=== PATIENT | female | born 1990 | race Caucasian/White ===

== ENCOUNTER 2016-09-14 15:09 | Emergency (ER) | payer MEDICAID ==
[2016-09-14 16:26] LABS: ANION GAP 9.9 (7-16); BLOOD UREA NITROGEN 13 mg/dL (7-17); CARBON DIOXIDE 26.1 mmol/L (22-30); CREATININE 0.7 mg/dL (0.52-1.04); EST GLOMERULAR FILTRATION RATE > 60 ml/min; GLUCOSE,RANDOM 179 mg/dL (70-110)
--- NOTE | 2016-09-14 17:29 | Emergency Department Record ---
History of Present Illness - General Chief complaint: Hypogylcemia Stated complaint: LOW BLOOD SUGAR Time Seen by Provider: 09/14/16 15:55 Source: Patient Mode of Arrival: Ambulatory Limitations: No limitations - History of Present Illness Initial comments: pt recently had her diabetic meds changed and now has fluctuating bs from 190 to 70. she was told to come in. she states she usually runs in the 200s and when she dropped to 70 she became nauseated. she was recently started on glipizide and tanzeum which she received last friday. Onset/Timin -: Week(s) Location: Generalized Consistency: Intermittent Improves with: None Worsens with: None Associated Symptoms: Nausea/vomiting - [place] Coma Scale Eye Response: (4) Open spontaneously Motor Response: (6) Obeys commands Verbal Response: (5) Oriented Radha Total: 15 - Related Data Home Medications Medication Instructions Recorded Confirmed Last Taken Aspirin 81 mg PO QD tab.chew 12/07/15 09/14/16 09/14/16 Insulin Aspart [Novolog Flexpen] 15 unit SQ TID pen.injctr 12/07/15 09/14/16 Prasugrel HCl [Effient] 10 mg PO QD tab 12/07/15 09/14/16 Unknown Allergies Allergy/AdvReac Type Severity Reaction Status Date / Time amoxicillin Allergy Severe HIVES Verified 09/14/16 15:32 Travel Screening - Travel/Exposure Within Last 30 Days Have you traveled within the last 30 days?: No Review of Systems Reviewed: No additional complaints except as noted below Constitutional: Reports: As per HPI. Denies: Chills, Fever, Malaise, Night sweats, Weakness, Weight change Eyes: Reports: As per HPI. Denies: Eye discharge, Eye pain, Photophobia, Vision change ENT: Reports: As per HPI. Denies: Congestion, Dental pain, Ear pain, Epistaxis , Hearing loss, Throat pain Respiratory: Reports: As per HPI. Denies: Cough, Dyspnea, Hemoptysis, Stridor, Wheezes Cardiovascular: Reports: As per HPI. Denies: Arrhythmia, Chest pain, Dyspnea on exertion, Edema, Murmurs, Orthopnea, Palpitations, Paroxysmal nocturnal dyspnea, Rheumatic Fever, Syncope Endocrine: Reports: As per HPI. Denies: Fatigue, Heat or cold intolerance, Polydipsia, Polyuria Gastrointestinal: Reports: As per HPI. Denies: Abdominal pain, Constipation, Diarrhea, Hematemesis, Hematochezia, Melena, Nausea, Vomiting Genitourinary: Reports: As per HPI. Denies: Abnormal menses, Discharge, Dyspareunia, Dysuria, Frequency, Hematuria, Incontinence, Retention, Urgency Musculoskeletal: Reports: As per HPI. Denies: Arthralgia, Back pain, Gout, Joint swelling, Myalgia, Neck pain Skin: Reports: As per HPI. Denies: Bruising, Change in color, Change in hair/ nails, Lesions, Pruritus, Rash Neurological: Reports: As per HPI. Denies: Abnormal gait, Confusion, Headache, Numbness, Paresthesias, Seizure, Tingling, Tremors, Vertigo, Weakness Psychiatric: Reports: As per HPI. Denies: Anxiety, Auditory hallucinations, Depression, Homicidal thoughts, Suicidal thoughts, Visual hallucinations Hematological/Lymphatic: Reports: As per HPI. Denies: Anemia, Blood Clots, Easy bleeding, Easy bruising, Swollen glands Past Medical History - SOCIAL HISTORY Smoking Status: Never smoker Alcohol Use: None Drug Use: None - RESPIRATORY Hx Respiratory Disorders: Yes Hx Asthma: Yes Hx Sleep Apnea: Yes Hx of CPAP: No - CARDIOVASCULAR Hx Cardio Disorders: Yes Hx Heart Attack: Yes Hx Hypertension: Yes Comment:: high cholesterol - NEURO Hx Neuro Disorders: No - GI Hx GI Disorders: No - Hx Genitourinary Disorders: No - ENDOCRINE Hx Endocrine Disorders: Yes Hx Diabetes: Yes - MUSCULOSKELETAL Hx Musculoskeletal Disorders: No - PSYCH Hx Psych Problems: No - HEMATOLOGY/ONCOLOGY Hx Hematology/Oncology Disorders: No Family Medical History Any Significant Family History?: Yes Hx Cancer: Grandparents Hx Diabetes: Father, Mother, Grandparents Physical Exam - General General Appearance: Alert, Oriented x3, Cooperative, No acute distress - Head Head exam: Normal inspection - Eye Eye exam: Normal appearance, PERRL, EOMI Pupils: Normal accommodation - ENT ENT exam: Normal exam, Mucous membranes moist, Normal external ear exam, Normal orophraynx Ear exam: Normal external inspection. negative: External canal tenderness Nasal Exam: Normal inspection. negative: Discharge, Sinus tenderness Mouth exam: Normal external inspection, Tongue normal Teeth exam: Normal inspection. negative: Dental caries Throat exam: Normal inspection. negative: Tonsillar erythema, Tonsillar exudate - Neck Neck exam: Normal inspection, Full ROM. negative: Tenderness - Respiratory Respiratory exam: Normal lung sounds bilaterally. negative: Respiratory distress - Cardiovascular Cardiovascular Exam: Regular rate, Normal rhythm, Normal heart sounds - GI/Abdominal GI/Abdominal exam: Soft, Normal bowel sounds. negative: Tenderness - Rectal Rectal exam: Deferred - exam: Deferred - Extremities Extremities exam: Normal inspection, Full ROM, Normal capillary refill. negative: Tenderness - Back Back exam: Reports: Normal inspection, Full ROM. Denies: Muscle spasm, Rash noted, Tenderness - Neurological Neurological exam: Alert, CN II-XII intact, Normal gait, Oriented X3 - Psychiatric Psychiatric exam: Normal affect, Normal mood - Skin Skin exam: Dry, Intact, Normal color, Warm Course Vital Signs 09/14/16 15:23 Temperature 98.1 F Pulse Rate 108 H Respiratory 20 Rate Blood Pressure 152/99 Pulse Ox 97 - Reevaluation(s) Reevaluation #1: 09/14/16 17:29 pt did well her entire stay. she has not taken her glipizide today. pt d/w jose who agreed w stopping glipizide and tanzeum until further eval at pcp 09/14/16 17:31 Medical Decision Making - Lab Data Result diagrams: 09/14/16 16:13 Lab Results 09/14/16 09/14/16 Range/Units 15:21 16:13 Sodium 139 (136-145) mmol/L Potassium 4.1 (3.5-5.1) mmol/L Chloride 103 (98-107) mmol/L Carbon Dioxide 26.1 (22-30) mmol/L Anion Gap 9.9 (7-16) BUN 13 (7-17) mg/dL Creatinine 0.7 (0.52-1.04) mg/dL Estimated GFR > 60 ml/min POC Glucose 196 H (70-110) mg/dL Random Glucose 179 H (70-110) mg/dL Calcium 9.1 (8.5-10.1) mg/dL Disposition Disposition: Discharge Clinical Impression: Hypoglycemia Disposition: Home, Self-Care Condition: (1) Good Instructions: Hypoglycemia in a Person with Diabetes (ED) Additional Instructions: stop glipizide and tanzeum until evaluated by pcp. monitor blood sugars closely. f/u with family dr infante. return sooner if worse Forms: Patient Portal Access Quality - Quality Measures Quality Measures: N/A - Blood Pressure Screening Blood Pressure Classification: Hypertensive Reading Systolic Measurement: 152 Diastolic Measurement: 99 Screening for High Blood Pressure: < First Hypertensive BP, F/U Documented > [ G8950] First Hypertensive Follow-up Interventions: Follow-up with rescreen GT 1 day and LT 4 weeks., Referral to alternative/primary care provider.
== END 2016-09-14 17:52 | disposition home or self-care (01) ==
LOC: ER 15:09
DX: E11.649 Type 2 diabetes mellitus with hypoglycemia without coma (principal); R11.2 Nausea with vomiting, unspecified; Z79.84 Long term (current) use of oral hypoglycemic drugs; Z79.4 Long term (current) use of insulin
CPT/HCPCS: 36416; 80048; 82948; 99283

== ENCOUNTER 2016-10-12 19:17 | Emergency (ER) | payer MEDICAID ==
--- NOTE | 2016-10-12 19:35 | Emergency Department Record ---
History of Present Illness - General Chief Complaint: Chest Pain Stated Complaint: CHEST PAINS Time Seen by Provider: 10/12/16 19:29 Source: Patient - History of Present Illness Initial Comments: The patient states she had a heart attack in 2014, and a cardiac stent was placed in 2015. For the past 2 weeks she has been getting intermittent brief episodes of sharp stabbing chest pain substernally and through to the back, lasting a maximum of one minute or less, then resolving. Today at work while standing she had another episode, which was as just described but also with SOB which alarmed her. She took two deep breaths and the symptoms resolved. They then recurred again about 30 minutes later. Her auxiliary power equipment operator recommended she come be seen when she spoke to him. She currently has no symptoms. Risks: TN in 2014m, DM on insulin, htn, and smoker of 3-4 cigs/day. She denies PE, DVT, CVA. She has asthma. - Related Data Home Medications Medication Instructions Recorded Confirmed Last Taken Aspirin 81 mg PO QD tab.chew 12/07/15 10/12/16 09/14/16 Prasugrel HCl [Effient] 10 mg PO QD tab 12/07/15 10/12/16 Unknown Allergies Allergy/AdvReac Type Severity Reaction Status Date / Time amoxicillin Allergy Severe HIVES Unverified 09/30/16 10:51 Review of Systems Reviewed: No additional complaints except as noted below Constitutional: Reports: As per HPI. Denies: Chills, Fever, Malaise, Night sweats, Weakness, Weight change Eyes: Reports: As per HPI. Denies: Eye discharge, Eye pain, Photophobia, Vision change ENT: Reports: As per HPI. Denies: Congestion, Dental pain, Ear pain, Epistaxis , Hearing loss, Throat pain Respiratory: Reports: As per HPI. Denies: Cough, Dyspnea, Hemoptysis, Stridor, Wheezes Cardiovascular: Reports: As per HPI. Denies: Arrhythmia, Chest pain, Dyspnea on exertion, Edema, Murmurs, Orthopnea, Palpitations, Paroxysmal nocturnal dyspnea, Rheumatic Fever, Syncope Endocrine: Reports: As per HPI. Denies: Fatigue, Heat or cold intolerance, Polydipsia, Polyuria Gastrointestinal: Reports: As per HPI. Denies: Abdominal pain, Constipation, Diarrhea, Hematemesis, Hematochezia, Melena, Nausea, Vomiting Genitourinary: Reports: As per HPI. Denies: Abnormal menses, Discharge, Dyspareunia, Dysuria, Frequency, Hematuria, Incontinence, Retention, Urgency Musculoskeletal: Reports: As per HPI. Denies: Arthralgia, Back pain, Gout, Joint swelling, Myalgia, Neck pain Skin: Reports: As per HPI. Denies: Bruising, Change in color, Change in hair/ nails, Lesions, Pruritus, Rash Neurological: Reports: As per HPI. Denies: Abnormal gait, Confusion, Headache, Numbness, Paresthesias, Seizure, Tingling, Tremors, Vertigo, Weakness Psychiatric: Reports: As per HPI. Denies: Anxiety, Auditory hallucinations, Depression, Homicidal thoughts, Suicidal thoughts, Visual hallucinations Hematological/Lymphatic: Reports: As per HPI. Denies: Anemia, Blood Clots, Easy bleeding, Easy bruising, Swollen glands Past Medical History - SOCIAL HISTORY Smoking Status: Never smoker Drug Use: None - RESPIRATORY Hx Respiratory Disorders: Yes Hx Asthma: Yes Hx Sleep Apnea: Yes Hx of CPAP: No - CARDIOVASCULAR Hx Cardio Disorders: Yes Hx Heart Attack: Yes Hx Hypertension: Yes Comment:: high cholesterol - NEURO Hx Neuro Disorders: No - GI Hx GI Disorders: No - Hx Genitourinary Disorders: No - ENDOCRINE Hx Endocrine Disorders: Yes Hx Diabetes: Yes - MUSCULOSKELETAL Hx Musculoskeletal Disorders: No - PSYCH Hx Psych Problems: No - HEMATOLOGY/ONCOLOGY Hx Hematology/Oncology Disorders: No Family Medical History Hx Cancer: Grandparents Hx Diabetes: Father, Mother, Grandparents Physical Exam - General General Appearance: Alert, Oriented x3, Cooperative, Anxious (mildly), Other ( obese) - Head Head exam: Normal inspection - Eye Eye exam: Normal appearance, PERRL Pupils: Normal accommodation - ENT ENT exam: Normal exam, Mucous membranes moist, Normal external ear exam, Normal orophraynx, TM's normal bilaterally Ear exam: Normal external inspection. negative: External canal tenderness Nasal Exam: Normal inspection. negative: Discharge, Sinus tenderness Mouth exam: Normal external inspection, Tongue normal Teeth exam: Normal inspection. negative: Dental caries Throat exam: Normal inspection. negative: Tonsillar erythema, Tonsillar exudate - Neck Neck exam: Normal inspection, Full ROM. negative: Tenderness - Respiratory Respiratory exam: Normal lung sounds bilaterally. negative: Chest wall tenderness, Respiratory distress - Cardiovascular Cardiovascular Exam: Regular rate, Normal rhythm, Normal heart sounds - GI/Abdominal GI/Abdominal exam: Soft, Normal bowel sounds. negative: Tenderness - Rectal Rectal exam: Deferred - exam: Deferred - Extremities Extremities exam: Normal inspection, Full ROM, Normal capillary refill, Other ( large boil underside of upper left arm in one of the several skin folds.). negative: Calf tenderness, Pedal edema, Tenderness - Back Back exam: Reports: Normal inspection, Full ROM. Denies: Muscle spasm, Rash noted, Tenderness - Neurological Neurological exam: Alert, CN II-XII intact, Normal gait, Oriented X3, Reflexes normal - Psychiatric Psychiatric exam: Normal affect, Normal mood - Skin Skin exam: Dry, Intact, Normal color, Warm Course - Reevaluation(s) Reevaluation #1: The patient told me that she has had a large boil on the undersurface of her left upper arm and that may be causing her high d dimer. 10/12/16 20:43 Reevaluation #2: No further symptoms. 10/12/16 20:44 Reevaluation #3: 10/12/16 23:59 No further chest symptoms while here in the department. Medical Decision Making - Data Complexity MDM Data: Labs Ordered and/or Reviewed (troponin <0.012, CKMB 1.4, BS 277 ), EKG Ordered and/or Reviewed - Lab Data Result diagrams: 10/12/16 19:30 10/12/16 19:30 - EKG Data -: EKG Interpreted by Me EKG: No Acute Changes (No prior for comparison, poor R wave progression. ) Disposition Disposition: Discharge Clinical Impression: Chest pain Qualifiers: Chest pain type: unspecified Qualified Code(s): R07.9 - Chest pain, unspecified Disposition: Home, Self-Care Condition: (1) Good Instructions: Chest Pain (ED), How to Stop Smoking (ED), Effects of Smoking, Alcohol, and Medicines on (ED), Secondhand Smoke Exposure in Children (ED) Additional Instructions: Follow up with your auxiliary power equipment operator in the office for recheck this week. Discontinue smoking completely and permanently. Forms: Patient Portal Access Quality - Quality Measures Quality Measures: N/A - Blood Pressure Screening Does Patient Have Any of the Following: Active Dx of HTN Blood Pressure Classification: Pre-Hypertensive BP Reading Systolic Measurement: 121 Diastolic Measurement: 75 Screening for High Blood Pressure: Patient Exclusion, Hx of HTN [G0425]
[2016-10-12] MEDS: ASPIRIN 81 MG CHEWABLE TABLET PO ONE (19:36)
[2016-10-12 19:38] LABS: BASO % 0.5 % (0-6); EOS % 1.9 % (0-6); GRAN % 58.1 % (47-80); HEMATOCRIT 39.1 % (35.0-47.0); LYMPH % 33.4 % (16-45); MEAN CELL VOLUME 86.9 fl (81-97); MEAN CORPUSCULAR HEMOGLOBIN 28.9 pg (27-33); MEAN CORPUSCULAR HGB CONC 33.2 g/dl (32-36); MEAN PLATELET VOLUME 9.9 fl (7.4-10.4); MONO % 6.1 % (0-9); PLATELET COUNT 279 K/uL (130-400); RED CELL DISTRIBUTION WIDTH 12.5 % (11.5-14.5); WHITE BLOOD COUNT W/O DIFF 7.9 K/uL (4.2-12.2)
[2016-10-12 19:47] LABS: ANION GAP 10.1 (7-16); BLOOD UREA NITROGEN 13 mg/dL (7-17); CARBON DIOXIDE 24.9 mmol/L (22-30); CREATININE 0.7 mg/dL (0.52-1.04); EST GLOMERULAR FILTRATION RATE > 60 ml/min; GLUCOSE,RANDOM 277 mg/dL (70-110)
[2016-10-12 19:50] LABS: INR 1.02; PARTIAL THROMBOPLASTIN TIME 26.7 SECONDS (24.5-39.1)
[2016-10-12 19:51] LABS: D-DIMER 1.11 mg/L FEU (0-0.59)
[2016-10-12 20:00] LABS: CKMB 1.4 ug/L (0-6)
[2016-10-12 20:15] LABS: TROPONIN I < 0.012 ng/mL (0.00-0.034)
[2016-10-12 20:18] LABS: THYROID STIMULATING HORMONE 2.74 uIU/ml (0.465-4.68)
--- NOTE | 2016-10-15 07:37 | CT ANGIOGRAM REPORT ---
EXAM: CTA OF THE CHEST HISTORY: CHEST PAIN FOR TWO WEEKS. ELEVATED D-DIMER. EVALUATE FOR PULMONARY EMBOLUS. TECHNIQUE: Routine CT angiography images of the chest were obtained. 3D/MIP images were provided for additional assessment. Amount and type of contrast in the medical record. Comparison: None. FINDINGS: Suboptimal bolus timing limits assessment for small peripheral PE. No large central PE is seen. The aorta enhances normally with contrast. The heart is not enlarged. No pericardial effusion. No mediastinal or hilar lymph node enlargement. The lungs are without focal consolidation or pleural effusion. Visualized upper abdomen is unremarkable. Degenerative changes mid/lower thoracic spine, moderate range. IMPRESSION: NO ACUTE INTRATHORACIC ABNORMALITY. SPECIFICALLY NO EVIDENCE FOR PULMONARY EMBOLUS. PLEASE NOTE, HOWEVER, SUBOPTIMAL BOLUS TIMING DOES LIMIT ASSESSMENT FOR SMALL PERIPHERAL PE. CLINICAL SUSPICION FOR PE SHOULD DICTATE FURTHER MANAGEMENT. JOB NUMBER: [id number] MTDD
== END 2016-10-13 00:18 | disposition home or self-care (01) ==
LOC: ER 19:17
DX: R07.9 Chest pain, unspecified (principal); R06.02 Shortness of breath; I10 Essential (primary) hypertension; I25.2 Old myocardial infarction; E11.9 Type 2 diabetes mellitus without complications; Z79.4 Long term (current) use of insulin; F17.210 Nicotine dependence, cigarettes, uncomplicated
CPT/HCPCS: 99284 ×2; 85025; 85730; 85610; 82553; 84484; 80048; 84443; 84703; 85379; 71275; 93005; 93010; Q9967

== ENCOUNTER 2016-11-26 12:09 | Emergency (ER) | payer MEDICAID ==
--- NOTE | 2016-11-26 13:23 | Emergency Department Record ---
History of Present Illness - General Chief complaint: Abscess Stated complaint: BOIL UNDER ARM Time Seen by Provider: 11/26/16 13:22 Source: Patient Mode of Arrival: Ambulatory Limitations: No limitations - History of Present Illness Initial comments: The patient is here at [facility] for multiple complaints. She has had a chronic boil under her L arm over the armpit for months. She did see her PCP last week for it and was supposed to have oral Abx's called in but none were. That is her first issue. Additionally she was vomiting last night just over 12 hours ago and vomited so much she felt like she may have passed out and bumped her head. She was alone and is not sure if she did have any LOC but has had a mild JADE since. The nausea and vomiting have resolved but she is having some sharp stabbing epigastric pain off and on. Presently there is no AP present. She does have a hx of cardiac dz with a stent and is on Effient but denies any Cp, SOB, or ROGELIO with any of this. MD complaint: Other Onset/Timin -: Days(s) Location: LUE Consistency: Constant Improves with: None Worsens with: None Context: None Associated symptoms: Vomiting Treatments Prior to Arrival: None - Related Data Previous Rx's Medication Instructions Recorded Clindamycin HCl [Cleocin HCl] 300 mg PO QID #28 capsule 11/26/16 Ondansetron [Zofran Odt] 4 mg SL .Q4-6H PRN #12 tab.rapdis 11/26/16 Allergies Allergy/AdvReac Type Severity Reaction Status Date / Time amoxicillin Allergy Severe HIVES Unverified 09/30/16 10:51 Travel Screening - Travel/Exposure Within Last 30 Days Have you traveled within the last 30 days?: No Review of Systems Constitutional: Denies: Chills, Fever Eyes: Denies: Eye discharge ENT: Denies: Congestion Respiratory: Denies: Cough, Dyspnea Past Medical History - SOCIAL HISTORY Smoking Status: Never smoker Alcohol Use: None Drug Use: None - RESPIRATORY Hx Respiratory Disorders: Yes Hx Asthma: Yes Hx Sleep Apnea: Yes Hx of CPAP: No - CARDIOVASCULAR Hx Cardio Disorders: Yes Hx Heart Attack: Yes Hx Hypertension: Yes Comment:: high cholesterol - NEURO Hx Neuro Disorders: No - GI Hx GI Disorders: No - Hx Genitourinary Disorders: No - ENDOCRINE Hx Endocrine Disorders: Yes Hx Diabetes: Yes - MUSCULOSKELETAL Hx Musculoskeletal Disorders: No - PSYCH Hx Psych Problems: No - HEMATOLOGY/ONCOLOGY Hx Hematology/Oncology Disorders: No Family Medical History Any Significant Family History?: Yes Hx Cancer: Grandparents Hx Diabetes: Father, Mother, Grandparents Physical Exam - General General Appearance: Alert, Oriented x3, Cooperative, No acute distress - Head Head exam: Atraumatic, Normocephalic, Normal inspection - Eye Eye exam: Normal appearance, PERRL, EOMI - ENT Throat exam: Normal inspection. negative: Tonsillar erythema, Tonsillar exudate - Neck Neck exam: Normal inspection, Full ROM. negative: Tenderness - Respiratory Respiratory exam: Normal lung sounds bilaterally. negative: Respiratory distress - Cardiovascular Cardiovascular Exam: Regular rate, Normal rhythm, Normal heart sounds - GI/Abdominal GI/Abdominal exam: Soft, Normal bowel sounds. negative: Distended, Rebound, Rigid, Tenderness - Extremities Extremities exam: negative: Normal inspection (There is a chronic appearing boil over the L axilla. It is not draining and is not erythematous or warm. It measures 2x3 cm.) Course Vital Signs 11/26/16 13:15 Temperature 98.2 F Pulse Rate 93 H Respiratory 18 Rate Blood Pressure 153/99 Pulse Ox 98 - Reevaluation(s) Reevaluation #1: The patient is doing a lot better. She has no nausea, vomiting, or AP now. Additionally she has no JADE, CP, SOB, or visual changes. She is drinking fluids well. I explained to her that her test results are WNL's and I am not sure why she was nauseated. She is to see her PCP next week and to also F/U with Dr. Blank in the Specialty clinic for the armpit cyst. 11/26/16 14:43 Medical Decision Making - Data Complexity MDM Data: Labs Ordered and/or Reviewed, X-Ray Ordered and/or Reviewed, EKG Ordered and/or Reviewed - Lab Data Result diagrams: 11/26/16 13:40 11/26/16 13:40 - EKG Data -: EKG Interpreted by Me EKG: No Acute Changes, Normal EKG - Radiology Data Radiology results: Report reviewed (Head CT: No intracranial abnormality. Poss cyst in scalp.) Disposition Disposition: Discharge Clinical Impression: Nausea Disposition: Home, Self-Care Condition: (1) Good Instructions: Abscess (ED) Additional Instructions: Please use the Zofran as directed and take the Clindamcyin. Please see your PCP next week and Dr. Blank as directed by the Specialty clinic. Please return to the ER for any problems. You are OK to work tomorrow with no work restrictions. Prescriptions: Clindamycin HCl [Cleocin HCl] 300 mg PO QID #28 capsule Ondansetron [Zofran Odt] 4 mg SL .Q4-6H PRN #12 tab.rapdis PRN Reason: Nausea Referrals: [facility] Specialty Clinics [Provider Group] Forms: Patient Portal Access, Return to Work/School Time of Disposition: 14:47 Quality - Quality Measures Quality Measures: N/A - Blood Pressure Screening View Details: Yes Does Patient Have Any of the Following: No Blood Pressure Classification: Hypertensive Reading Systolic Measurement: 152 Diastolic Measurement: 92 Screening for High Blood Pressure: < Pre-Hypertensive BP, F/U Documented > [ G8950] Pre-Hypertensive Follow-up Interventions: Referral to alternative/primary care provider.
[2016-11-26 13:31] LABS: URINE APPEARANCE CLEAR; URINE BILIRUBIN NEGATIVE (NEGATIVE); URINE BLOOD NEGATIVE (NEGATIVE); URINE COLOR YELLOW; URINE KETONE NEGATIVE (NEGATIVE); URINE LEUKOCYTE ESTERASE NEGATIVE (NEGATIVE); URINE NITRITE NEGATIVE (NEGATIVE); URINE PROTEIN NEGATIVE (NEGATIVE); URINE UROBILINOGEN 0.2 E.U./dL (0.20 - 1.00)
[2016-11-26 13:34] LABS: URINE GLUCOSE (UA) >=1000 mg/dL (NEGATIVE)
[2016-11-26] MEDS: ONDANSETRON 4 MG ODT TABLET SL ONE (13:37)
[2016-11-26 13:54] LABS: BASO % 0.4 % (0-6); EOS % 0.9 % (0-6); GRAN % 64.7 % (47-80); HEMATOCRIT 40.6 % (35.0-47.0); HEMOGLOBIN 13.5 gm/dl (11.6-16.0); LYMPH % 29.3 % (16-45); MEAN CELL VOLUME 86.8 fl (81-97); MEAN CORPUSCULAR HEMOGLOBIN 28.8 pg (27-33); MEAN CORPUSCULAR HGB CONC 33.3 g/dl (32-36); MEAN PLATELET VOLUME 9.9 fl (7.4-10.4); MONO % 4.7 % (0-9); PLATELET COUNT 263 K/uL (130-400); RED BLOOD COUNT 4.68 M/uL (3.80-5.40); RED CELL DISTRIBUTION WIDTH 12.6 % (11.5-14.5); WHITE BLOOD COUNT W/O DIFF 7.7 K/uL (4.2-12.2)
[2016-11-26 14:19] LABS: INR 0.97; PARTIAL THROMBOPLASTIN TIME 26.1 SECONDS (24.5-39.1); PROTHROMBIN TIME (PATIENT) 10.5 SECONDS (9.5-12.1)
[2016-11-26 14:23] LABS: ALBUMIN 3.7 g/dL (4.0-5.0); BILIRUBIN,DIRECT 0.2 mg/dL (0-0.3); BILIRUBIN,TOTAL 0.4 mg/dL (0.2-1.0); TOTAL PROTEIN 7.1 g/dL (6.6-8.7)
[2016-11-26 14:25] LABS: BLOOD UREA NITROGEN 12 mg/dL (6-20); CKMB 2.3 ng/mL (<3.77); CREATINE PHOSPHOKINASE 150 U/L (26-192); CREATININE 0.5 mg/dL (0.5-0.9); EST GLOMERULAR FILTRATION RATE > 60 mL/min; GLUCOSE,RANDOM 274 mg/dL (74-109)
[2016-11-26 14:27] LABS: TROPONIN I < 0.30 ng/mL (0.00-0.300)
--- NOTE | 2016-11-28 13:42 | CT SCAN REPORT ---
EXAM: EMERGENCY HEAD CT HISTORY: LEFT OCCIPITAL HEADACHE, FELL LAST NIGHT, HISTORY OF MIGRAINES. TECHNIQUE: Axial CT scan of the head was performed without IV contrast. Comparison: None. Encounter: Initial. FINDINGS: No definite acute intracranial hemorrhage is identified. No focal mass effect or midline shift apparent. No definite acute infarct or intracranial mass lesion is seen. No depressed calvarial fracture evident. There is an oval 1.4 cm in length soft tissue density in the scalp of the left occipital region, this may just be a small sebaceous cyst although given the history of trauma last evening to this region, could be a small scalp hematoma. IMPRESSION: 1. NO ACUTE INTRACRANIAL HEMORRHAGE OR FOCAL MASS EFFECT IDENTIFIED. 2. SEBACEOUS CYST OR POSSIBLY A VERY SMALL HEMATOMA IN THE SCALP OF THE LEFT OCCIPITAL REGION. JOB NUMBER: [id number] [facility]
== END 2016-11-26 15:00 | disposition home or self-care (01) ==
LOC: ER 12:09
DX: L02.412 Cutaneous abscess of left axilla (principal); R11.0 Nausea; R10.13 Epigastric pain; R51 Headache; I10 Essential (primary) hypertension; I25.2 Old myocardial infarction
CPT/HCPCS: 70450; 80048; 80076; 81003; 81025; 82550; 82553; 83690; 84484; 85025; 85610; 85730; 93005; 93010; 99284